=== PATIENT | male | born 1945 | race African-American/Black ===

== ENCOUNTER 2022-01-12 06:09 | Emergency (ER) | payer MEDICARE, OTHER, SELFPAY ==
[2022-01-12 06:10] VITALS: BP 140/77; PULSE 63; O2SAT 100
[2022-01-12 06:20] VITALS: BP 140/77; PULSE 70; O2SAT 99; BMI 21.2
[2022-01-12 06:26] VITALS: BP 146/64; PULSE 70; RESP 20; O2SAT 100
[2022-01-12 06:34] LABS: Glucose, Whole Blood 129 mg/dL (60-115)
--- NOTE | 2022-01-12 06:49 | PC.NURSE ---
pt reports having an elevated POC of 217 around 230am. per pt medicated himself with an insulin pen in the dark without glasses. found pt obtunded this morning, and tried honey before calling 911
--- NOTE | 2022-01-12 06:51 | PC.NURSE ---
pt has no complaints at this time. pt has no deficits, implementation technician strength equal. pt given apple juice, pudding, and a boost drink. at bedside.
--- NOTE | 2022-01-12 07:20 | ED.GENADULT ---
HPI - General Adult General Chief complaint: Altered Mental Status Stated complaint: hypoglycemia Time Seen by Provider: 01/12/22 07:18 Source: patient Mode of arrival: ambulatory Limitations: no limitations History of Present Illness HPI narrative: 76-year-old male presents emergency department with low blood sugar. Patient states he woke up noticed he had a very high blood sugar and 02:00 o'clock morning in the dark it out of his insulin pen and then injected himself his significant other woke up to him being sweaty and had altered she was unable to give any glucose gone and then called EMS EMS found him with a glucose 34 patient was started with D50 on arrival patient was fed patient feels much better patient had been waiting about 2 hours to start of my shift. I was able to see the patient. He has dialysis today he is stable at this time if comfortable discharging patient is not taking oral hypoglycemics. Related Data Allergies Allergy/AdvReac Type Severity Reaction Status Date / Time lisinopril [LISINOPRIL] Allergy Severe SWOLLEN Verified 01/12/22 06:26 TONGUE warfarin [WARFARIN] Allergy Severe CALSIFLAXSI Verified 01/12/22 06:26 S Review of Systems Review of Systems: Review of systems: General: Patient denies any fever chills recent illness or falls Musculoskeletal: Denies back pain or body aches or other injuries HEENT: denies headache, runny nose, ear pain Respiratory: denies shortness of breath, cough Cardiovascular: no chest pain or palpitations : denies dysuria, frequency Abdomen: no nausea vomiting denies abdominal pain Extremities: no swelling, no pain Skin: no diaphoresis Yes all other systems are reviewed and are negative [facility] Past Medical History Attestation statement: The following information was validated with the patient. Social History Social History Advance Directives: Yes Advance Directives Information Provided: Yes Advance Directives on File: No Physical Exam ED Vital Signs: Vital Signs - 24 hr 01/12/22 06:26 Pulse Rate 70 Respiratory Rate 20 Blood Pressure 146/64 H Pulse Oximetry 100 Oxygen Delivery Method Room Air BMI result Body Mass Index 21.2 Medical Decision Making MDM Narrative Medical decision making narrative: Patient with hypoglycemic as episode due to elevated insulin injection patient otherwise looks well I will send patient home so that the patient can set up for dialysis today. Lab Data Labs: Lab Results 01/12/22 Range/Units 06:30 POC Glucose 129 H (60-115) mg/dL Discharge Plan Discharge Clinical Impression: Hypoglycemia Patient Disposition: Home, Self-Care Instructions: Hypoglycemia in a Person with Diabetes (ED) Additional Instructions: Please remember to dial and your dose of insulin in the lights so you do not have this problem again. If you have any other concerns please do not hesitate to come back to emergency department.
[2022-01-12 07:24] LABS: Glucose, Whole Blood 151 mg/dL (60-115)
== END 2022-01-12 07:59 | disposition home or self-care (01) ==
PROVIDERS: Emergency Provider Student in an Organized Health Care Education/Training Program; PCP Internal Medicine
DX: E11.649 Type 2 diabetes mellitus with hypoglycemia without coma (principal); Z79.4 Long term (current) use of insulin; Z79.899 Other long term (current) drug therapy
CPT/HCPCS: 82947; 99282; 99284